=== PATIENT | female | born 1995 | race Caucasian/White ===

== ENCOUNTER 2016-10-23 12:20 | Emergency (ER) | payer BC ==
[~2016-10-23] VITALS: Ht 167.6 cm; Wt 61.0 kg
[2016-10-23 12:22] VITALS: TEMP 36.7; Ht 167.6 cm; Wt 61.0 kg
[2016-10-23] MEDS ORDERED: BCPILLS PO (12:34)
[2016-10-23] MEDS ORDERED: VITACAP26 PO (12:34)
[2016-10-23] MEDS ORDERED: SODIUM CHLORIDE 0.9% 1000ML 1,000 ML IV STA (13:01)
[2016-10-23 13:43] LABS: BASO % 1.1 %; BASO ABS # 0.06 K/uL (0-0.2); COMPLETE YES; HEMATOCRIT 40.3 % (37-47); IG% 0.4 %; LYMPH % 35.6 %; LYMPH ABS # 1.96 K/uL (1.2-3.4); MEAN CELL VOLUME 91.6 fL (80-100); MEAN CORPUSCULAR HEMOGLOBIN 30.9 pg (25-34); MEAN CORPUSCULAR HGB CONC 33.7 g/dl (32-36); MEAN PLATELET VOLUME 7.9 fL (7.4-10.4); MONO % 7.1 %; NEUT % 53.8 %; PLATELET COUNT 514 K/uL (130-400)
[2016-10-23 13:47] LABS: CALCIUM 8.4 mg/dl (8.5-10.1)
[2016-10-23 13:50] LABS: BLOOD UREA NITROGEN 9 mg/dl (7-18); BUN/CREATININE RATIO 12.5 (10-20); CARBON DIOXIDE 27 mmol/L (21-32); CHLORIDE 108 mmol/L (98-107); CREATININE 0.69 mg/dl (0.60-1.20); GLUCOSE 84 mg/dl (70-99); POTASSIUM 3.9 mmol/L (3.5-5.1); SODIUM 141 mmol/L (136-145)
[2016-10-23 13:54] LABS: CKMB/CK RATIO 1.3 (0-3.0)
--- NOTE | 2016-10-23 14:13 | DIAGNOSTIC IMAGING REPORT ---
CHEST ONE VIEW PORTABLE HISTORY: Atypical Chest Pain COMPARISON: None. FINDINGS: The lungs are clear. Cardiac silhouette is normal in size. No pleural effusions. No pneumothorax. IMPRESSION: No acute process. Electronically signed by: Phi Vera M.D. 10/23/2016 2:12 PM Dictated Date/Time: 10/23/2016 2:11 PM
--- NOTE | 2016-10-23 14:14 | DIAGNOSTIC IMAGING REPORT ---
CT SCAN OF THE BRAIN WITHOUT IV CONTRAST CLINICAL HISTORY: Dizziness. Syncope. COMPARISON STUDY: No priors. TECHNIQUE: Unenhanced axial CT scan of the brain is performed from the vertex to the skull base. Automated dose control exposure was utilized. CT DOSE: 537.48 mGy.cm FINDINGS: Brain parenchyma: The brain parenchyma is normal in appearance. There is no hemorrhage, mass effect, or evidence of acute territorial ischemia by CT criteria. Patterson-white matter is preserved. No extra-axial fluid collection is seen. Ventricles, sulci, cisterns: Normal in configuration. Intracranial vasculature: The visualized intracranial vasculature at the skull base is normal in appearance. Calvarium: Unremarkable. Sinuses and mastoids: The visualized paranasal sinuses are clear. The mastoid air cells are well pneumatized. Orbits: The bony orbits are grossly intact. IMPRESSION: No acute intracranial abnormality. Electronically signed by: Bryn Hines M.D. 10/23/2016 2:13 PM Dictated Date/Time: 10/23/2016 2:12 PM
[2016-10-23] MEDS ORDERED: KETOROLAC TROMETHAMINE 30 MG/ML VIAL IV STA (14:36)
[2016-10-23 15:10] VITALS: BP 113/71; PULSE 79; O2SAT 100
--- NOTE | 2016-10-23 18:06 | EMERGENCY ROOM VISIT NOTE ---
History Report prepared by Michael: Jagruti Mike Under the Supervision of: Dr. Amilcar Prasad D.O. First contact with patient: 12:38 Chief Complaint: DIZZY Stated Complaint: FAINTED - DIZZY - TROUBLE SPEAKING Nursing Triage Summary: pt here with syncopal event while kneeling at work this am. pt states did eat breakfast. pt states now feels dizzy. nausea prior to passing out. History of Present Illness The patient is a 21 year old female who presents to the Emergency Room with complaints of a syncopal episode that occurred 2 hours prior to arrival. The patient states that she was kneeling down at work talking to a coworker. She became pale, nauseated and had a warm sensation come over her. The patient then experienced the syncopal episode and did hit her head on the desk. She was told the episode only lasted for a few seconds. She denies confusion after the episode. She notes diaphoresis, jaw tightness and chills immediately after the episode. The patient is experiencing a headache now. She notes that this has never happened to her before. The patient did eat breakfast this morning. She is on control and her LNMP was 2 weeks ago. Pt denies change in vision, fevers, neck pain, chest pain, shortness of breath, vomiting, diarrhea, pain with urination, and melena. Denies any history of diabetes, hypertension, hyperlipidemia or CAD. Denies a history of sudden in her family at a young age. Denies any hemoptysis, swelling of her calves, recent trips, recent surgeries, smoking or previous blood clots. Source of History: patient Onset: 2 hours [employer] Position: other (global) Quality: other (syncope ) Timing: other (episode) Associated Symptoms: + chills, + diaphoresis, + headache, + nausea Review of Systems See HPI for pertinent positives & negatives. A total of 10 systems reviewed and were otherwise negative. Past Medical & Surgical Medical Problems: (1) Anxiety Family History Patient reports no known family medical history. Social History Smoking Status: Never Smoker Smokeless Tobacco Use: No Drug Use: none Marital Status: single Housing Status: lives with roommate Occupation Status: employed Current/Historical Medications Scheduled Control Pills ( Control Pills), 1 TAB PO DAILY Vitamins C & E (Vitamin C), 1 TAB PO DAILY Allergies Coded Allergies: No Known Allergies (Unverified , 10/23/16) Physical Exam Vital Signs Date Time Temp Pulse Resp B/P Pulse Ox O2 Delivery O2 Flow Rate FiO2 10/23/16 15:10 79 20 113/71 100 10/23/16 15:09 79 20 113/71 100 Room Air 10/23/16 14:13 98 16 125/86 100 Room Air 10/23/16 12:42 104 10/23/16 12:22 36.7 111 16 127/83 95 Room Air Physical Exam GENERAL: alert, sitting up in bed, well appearing, well nourished, no distress, non-toxic HEAD: Normocephalic atraumatic. EYE EXAM: normal conjunctiva OROPHARYNX: no exudate, no erythema, lips, buccal mucosa, and tongue normal and mucous membranes are moist NECK: supple, no nuchal rigidity, no adenopathy, non-tender LUNGS: Clear to auscultation. Normal chest wall mechanics HEART: no murmurs, S1 normal and S2 normal ABDOMEN: abdomen soft, non-tender, normo-active bowel sounds, no masses, no rebound or guarding. BACK: Back is symmetrical on inspection and there is no deformity, no midline tenderness, no CVA tenderness. SKIN: no rashes and no bruising UPPER EXTREMITIES: upper extremities are grossly normal. LOWER EXTREMITIES: No pitting edema. Calves equal bilaterally. NEURO EXAM: Normal sensorium, cranial nerves II-XII intact, normal speech, no weakness of arms, no weakness of legs. No drift. Finger to nose intact. Gross sensation intact. Medical Decision & Procedures ER Provider Diagnostic Interpretation: Radiology results as stated below per my review and the radiologist's interpretation: CT SCAN OF THE BRAIN WITHOUT IV CONTRAST CLINICAL HISTORY: Dizziness. Syncope. COMPARISON STUDY: No priors. TECHNIQUE: Unenhanced axial CT scan of the brain is performed from the vertex to the skull base. Automated dose control exposure was utilized. CT DOSE: 537.48 mGy.cm FINDINGS: Brain parenchyma: The brain parenchyma is normal in appearance. There is no hemorrhage, mass effect, or evidence of acute territorial ischemia by CT criteria. Patterson-white matter is preserved. No extra-axial fluid collection is seen. Ventricles, sulci, cisterns: Normal in configuration. Intracranial vasculature: The visualized intracranial vasculature at the skull base is normal in appearance. Calvarium: Unremarkable. Sinuses and mastoids: The visualized paranasal sinuses are clear. The mastoid air cells are well pneumatized. Orbits: The bony orbits are grossly intact. IMPRESSION: No acute intracranial abnormality. Electronically signed by: Bryn Hines M.D. 10/23/2016 2:13 PM Dictated Date/Time: 10/23/2016 2:12 PM CHEST ONE VIEW PORTABLE HISTORY: Atypical Chest Pain COMPARISON: None. FINDINGS: The lungs are clear. Cardiac silhouette is normal in size. No pleural effusions. No pneumothorax. IMPRESSION: No acute process. Electronically signed by: Phi Vera M.D. 10/23/2016 2:12 PM Dictated Date/Time: 10/23/2016 2:11 PM Laboratory Results 10/23/16 13:15 Red Blood Count 4.40, Mean Corpuscular Volume 91.6, Mean Corpuscular Hemoglobin 30.9, Mean Corpuscular Hemoglobin Concent 33.7, Mean Platelet Volume 7.9, Neutrophils (%) (Auto) 53.8, Lymphocytes (%) (Auto) 35.6, Monocytes (%) (Auto) 7.1, Eosinophils (%) (Auto) 2.0, Basophils (%) (Auto) 1.1, Neutrophils # (Auto) 2.96, Lymphocytes # (Auto) 1.96, Monocytes # (Auto) 0.39, Eosinophils # (Auto) 0.11, Basophils # (Auto) 0.06 10/23/16 13:15 Test 10/23/16 13:15 White Blood Count 5.50 K/uL (4.8-10.8) Red Blood Count 4.40 M/uL (4.2-5.4) Hemoglobin 13.6 g/dL (12.0-16.0) Hematocrit 40.3 % (37-47) Mean Corpuscular Volume 91.6 fL (80-100) Mean Corpuscular Hemoglobin 30.9 pg (25-34) Mean Corpuscular Hemoglobin Concent 33.7 g/dl (32-36) Platelet Count 514 K/uL (130-400) Mean Platelet Volume 7.9 fL (7.4-10.4) Neutrophils (%) (Auto) 53.8 % Lymphocytes (%) (Auto) 35.6 % Monocytes (%) (Auto) 7.1 % Eosinophils (%) (Auto) 2.0 % Basophils (%) (Auto) 1.1 % Neutrophils # (Auto) 2.96 K/uL (1.4-6.5) Lymphocytes # (Auto) 1.96 K/uL (1.2-3.4) Monocytes # (Auto) 0.39 K/uL (0.11-0.59) Eosinophils # (Auto) 0.11 K/uL (0-0.5) Basophils # (Auto) 0.06 K/uL (0-0.2) RDW Standard Deviation 44.2 fL (36.4-46.3) RDW Coefficient of Variation 13.2 % (11.5-14.5) Immature Granulocyte % (Auto) 0.4 % Immature Granulocyte # (Auto) 0.02 K/uL (0.00-0.02) D-Dimer < 190 ug/L FEU (0-500) Anion Gap 6.0 mmol/L (3-11) Est Creatinine Clear Calc Drug Dose 119.6 ml/min Estimated GFR () 143.2 Estimated GFR (Non- 123.6 BUN/Creatinine Ratio 12.5 (10-20) Calcium Level 8.4 mg/dl (8.5-10.1) Total Creatine Kinase 142 U/L (26-192) Creatine Kinase MB 1.8 ng/ml (0.5-3.6) Creatine Kinase MB Ratio 1.3 (0-3.0) Troponin I < 0.015 ng/ml (0-0.045) Laboratory results per my review. Medications Administered Medications (Trade) Dose Ordered Sig/Mallory Route Start Time Stop Time Status Last Admin Dose Admin Sodium Chloride (Nss 1000ml) 1,000 ml @ 999 mls/hr Q1H1M STAT IV 10/23/16 13:01 10/23/16 14:01 DC 10/23/16 13:20 999 MLS/HR Ketorolac Tromethamine (Toradol Inj) 30 mg NOW STAT IV 10/23/16 14:36 10/23/16 14:37 DC 10/23/16 15:03 30 MG ECG Indication: syncope Rate (beats per minute): 108 Rhythm: sinus tachycardia Findings: no ectopy, other (normal axis, normal intervals) ED Course ED COURSE: Vital signs were reviewed and showed hypertensive vitals. The patients medical record was reviewed The above diagnostic studies were performed and reviewed. ED treatments and interventions as stated above. 1252: The patient was evaluated in room B10. A complete history and physical examination was performed. 1301: Sodium Chloride 1,000 ml @ 999 mls/hr IV, Toradol Inj 30 mg IV. 1430: Upon reevaluation, the patient is hemodynamically stable.I discussed my findings with the patient and she understands and agrees with the treatment plan. Based on the patients age, coexisting illnesses, exam and lab findings the decision to treat as an outpatient was made. The patient remained stable while under my care. The patient appeared well at the time of discharge. Medical Decision Differential diagnosis includes etiologies such as vasovagal event, infection, hypoglycemia, electrolyte abnormalities, cardiac sources, intracerebral event, toxicologic, neurologic, as well as others were entertained. The patient is a 21 year old female who presents to the ED with complaints of syncope episode. Patient notes that she was kneeling down at work and her nauseous and then became diaphoretic. Following this she passed out for a couple seconds. There was no seizure activity reported. When she woke up she knew exactly where she was. No loss of bowel or bladder. She is completely neurologically intact. CBC along with BMP and troponin are negative. D-dimer is negative. EKG was unremarkable. Chest x-ray was negative. CT head was negative. Patient was given a bolus normal saline and felt significant better. I do believe that this is likely vasovagal syncope as she has no cardiac risk factors and is a low risk for PE especially with a negative d-dimer. Patient was updated regards to findings was discharged follow-up with her primary care doctor. Discussed with Pt concerning signs and symptoms to watch out for. Pt was instructed to follow up with their PCP and discussed with the patient their option to return to the ED at anytime for persistent or worsening symptoms. The appropriate anticipatory guidance and out-patient management, including indications for return to the emergency department, were explained at length to the patient and understood. Impression Primary Impression: Syncope Scribe Attestation The scribe's documentation has been prepared under my direction and personally reviewed by me in its entirety. I confirm that the note above accurately reflects all work, treatment, procedures, and medical decision making performed by me. Departure Information Dispostion Home / Self-Care Referrals No Doctor, Assigned (PCP) Forms HOME CARE DOCUMENTATION FORM, IMPORTANT VISIT INFORMATION Patient Instructions ED Syncope Vasovagal, My [facility] Additional Instructions Please follow up with your primary care doctor or if you are a student [facility] with in the next 24 hours. Any worsening of your symptoms, please return to the ED immediately. This includes recurrence of passing out, chest pain, shortness of breath, confusion, weakness or numbness in arms or legs, or any other concerning signs or symptoms from your stand point. Problem Qualifiers Primary Impression: Syncope Syncope type: unspecified Qualified Codes: R55 - Syncope and collapse
== END 2016-10-23 15:12 | disposition home or self-care (01) ==
LOC: C.EDB 12:20
DX: R55 Syncope and collapse (principal); R00.0 Tachycardia, unspecified; R51 Headache; R11.0 Nausea; R61 Generalized hyperhidrosis; R68.83 Chills (without fever); F41.9 Anxiety disorder, unspecified; Z79.3 Long term (current) use of hormonal contraceptives